=== PATIENT | male | born 1985 | race Two or more races ===

== ENCOUNTER 2021-10-20 13:11 | Emergency (ER) | payer MEDICAID ==
[~2021-10-20] VITALS: Ht 172.7 cm; Wt 80.0 kg
[2021-10-20] MEDS ORDERED: SODIUM CHLORIDE 0.9% 1,000 ML IV ONE (13:30)
[2021-10-20 15:24] LABS: BASOPHILS % 1.1 % (0.0-2.0); EOSINOPHILS % 1.3 % (0.0-5.0); HEMATOCRIT. 45.5 % (42.0-52.0); HEMOGLOBIN. 14.9 g/dL (14.0-18.0); LYMPHOCYTES % 18.4 % (20.0-50.0); MEAN CORPUSCULAR HEMOGLOBIN 34.2 pg (28.0-32.0); MEAN CORPUSCULAR VOLUME 104.3 fL (80.0-94.0); MEAN PLATELET VOLUME 7.9 fl (7.4-10.4); MONOCYTES % 7.5 % (2.0-8.0); NEUTROPHILS % 71.7 % (40.0-76.0); PLATELET 345 x1000/uL (130-400); RED BLOOD CELL COUNT 4.36 mill/uL (4.7-6.1); RED CELL DISTRIBUTION WIDTH 14.5 % (11.6-14.6)
[2021-10-20 15:30] LABS: CHLORIDE 112 mEq/L (98-107)
[2021-10-20 15:34] LABS: ETHANOL BLOOD 284 mg/dL
[2021-10-20 19:16] VITALS: BP 118/72
== END 2021-10-20 19:18 | disposition home or self-care (01) ==
LOC: ER 13:17
DX: F10.129 Alcohol abuse with intoxication, unspecified (principal); Y90.8 Blood alcohol level of 240 mg/100 ml or more; R41.82 Altered mental status, unspecified
CPT/HCPCS: 36415; 70450; 80053; 80307; 80320; 80329; 85025; 96360; 96361; 99284; J7030; G0480

== ENCOUNTER 2025-01-27 18:35 | Emergency (ER) | payer MEDICAID, OTHER ==
[~2025-01-27] VITALS: Ht 177.8 cm; Wt 91.0 kg
[2025-01-27 18:36] VITALS: BP 134/88; PULSE 118; RESP 18; TEMP 36.6; O2SAT 98
[2025-01-27] MEDS: PANTOPRAZOLE 40MG DR TABLET PO ONE (19:24)
[2025-01-27] MEDS: ONDANSETRON 4MG ODT PO ONE (19:24)
[2025-01-27 19:48] LABS: BASOPHILS % 0.4 % (0.0-2.0); EOSINOPHILS % 0.3 % (0.0-5.0); HEMATOCRIT. 41.7 % (42.0-52.0); HEMOGLOBIN. 13.7 g/dL (14.0-18.0); LYMPHOCYTES % 9.1 % (20.0-50.0); MEAN CORPUSCULAR HGB CONC 32.9 g/dL (31.0-37.0); MEAN PLATELET VOLUME 7.2 fl (7.4-10.4); MONOCYTES % 6.3 % (2.0-8.0); NEUTROPHILS % 83.9 % (40.0-76.0); PLATELET 153 x1000/uL (130-400); RED BLOOD CELL COUNT 4.43 mill/uL (4.7-6.1); RED CELL DISTRIBUTION WIDTH 15.2 % (11.6-14.6); WHITE BLOOD COUNT 9.1 x1000/uL (4.5-11.0)
[2025-01-27 19:49] LABS: CARBON DIOXIDE 25 mEq/L (21-32); CHLORIDE 100 mEq/L (98-107); POTASSIUM 3.7 mEq/L (3.5-5.1); SODIUM 136 mEq/L (136-145)
[2025-01-27 19:50] LABS: CALCIUM 9.1 mg/dL (8.7-10.4)
[2025-01-27 19:54] LABS: CREATININE 0.5 mg/dL (0.6-1.3)
[2025-01-27 19:55] LABS: ETHANOL BLOOD 245 mg/dL (<10); GLUCOSE 146 mg/dL (70-105); UREA NITROGEN BLOOD 12 mg/dL (9-23)
[2025-01-27 19:56] LABS: ALANINE AMINOTRANSFERASE 108 IU/L (10-49); ALBUMIN 3.8 g/dL (3.2-4.8); ASPARTATE AMINOTRANSFERASE 89 IU/L (<34)
[2025-01-27 19:57] LABS: BILIRUBIN DIRECT 0.2 mg/dL (<=3.0); BILIRUBIN TOTAL 0.7 mg/dL (0.1-1.0); PROTEIN TOTAL 7.9 g/dL (6.0-8.3)
[2025-01-27] MEDS: MORPHINE SULFATE 4 MG/ML INJ (FOR IV/IM USE) IM ONE (20:21)
[2025-01-27] MEDS ORDERED: MAG355OR21 MT (20:56)
[2025-01-27] MEDS ORDERED: FAMO-135 MT (20:56)
== END 2025-01-27 21:05 | disposition home or self-care (01) ==
LOC: ER 18:35
DX: F10.129 Alcohol abuse with intoxication, unspecified (principal); K85.90 Acute pancreatitis without necrosis or infection, unspecified; Y90.8 Blood alcohol level of 240 mg/100 ml or more
CPT/HCPCS: 80076; 80048; 80320; 83690; 85025; 36415; 71045; 96372; 99284; Q0162; J2270; G0480